=== PATIENT | female | born 1970 | race African-American/Black ===

== ENCOUNTER 2019-02-25 08:21 | Day surgery (SDC) | payer OTHER, BC ==
[2019-02-25] MEDS ORDERED: MIDAZOLAM HCL 2MG/2ML VIAL IV ONE (08:22)
[2019-02-25] MEDS ORDERED: LIDOCAINE 2% MDV (20MG/ML) 20ML VIAL IV ONE (08:22)
[2019-02-25] MEDS ORDERED: KETOROLAC 30 MG/ML VIAL IVP ONE (08:22)
[2019-02-25] MEDS ORDERED: SEVOFLURANE 250 ML INH ONE (08:22)
[2019-02-25] MEDS ORDERED: GLYCOPYRROLATE 0.2 MG/ML ML IV ONE (08:22)
[2019-02-25] MEDS ORDERED: FENTANYL PF 100MCG/2ML VIAL IV ONE (08:22)
[2019-02-25] MEDS ORDERED: PROPOFOL 10 MG/ML VIAL IV ONE (08:22)
[2019-02-25] MEDS ORDERED: ONDANSETRON HCL IV 4 MG/2 ML VIAL IVP ONE (08:22)
[2019-02-25] MEDS ORDERED: DEXAMETHASONE 4 MG/ML 1ML VIAL IVP ONE (08:22)
[2019-02-25] MEDS ORDERED: BUPIVACAINE 0.25% W/EPI MPF 30ML VIAL SQ ONE (11:04)
[2019-02-25] MEDS ORDERED: RINGERS SOLUTION,LACTATED 550 ML IV ONE (11:18)
[2019-02-25] MEDS ORDERED: HYDROCODONE/APAP 5/325MG TABLET PO ONE (11:53)
--- NOTE | 2019-02-26 12:11 | Operative Note ---
DATE OF SERVICE: 02/25/2019. DATE OF SURGERY: 02/25/2019. PREOPERATIVE DIAGNOSIS: Torn medial meniscus of the left knee. POSTOPERATIVE DIAGNOSES: 1. Torn medial meniscus, left knee. 2. Chondromalacia patellae, left knee. OPERATION: 1. Arthroscopic partial medial meniscectomy, left knee. 2. Arthroscopic chondroplasty of the patella, left knee. SURGEON: Terell Moreno DO. REFERRING PHYSICIAN: Rober Jasso MD. PROCEDURE: This 48-year-old female was taken to the operating room and placed in the supine position on the operating room table. General anesthetic was administered, and the left lower extremity was elevated. It was exsanguinated and the tourniquet inflated to 300 mmHg. Arthroscopic knee lopez applied. Left knee placed with Hibiclens and draped in the usual sterile fashion. An inferolateral portal was established with the 4 mm arthroscope, and initial evaluation of the joint demonstrated significant degenerative change of the patella, but the trochlea appeared to be normal. An inferomedial portal was established, and grade 3 chondromalacia of the median ridge, and part of the lateral facet demonstrated grade 3 changes of the patella. Loose fragments of articular cartilage were present, and these were smoothed and shaved with the rotating shaver to stable articular cartilage. It was reprobed and found to be stable. The medial compartment was entered, and the patient demonstrated evidence of a tear of the posterior horn of the medial meniscus. This was a complex tear with a horizontal cleavage component. The tear extended from approximately the 9 o'clock position around to about the 1 o'clock position and did not involve the meniscal root. The basket forceps and rotating shaver were used to resect unstable fragments of the posterior horn of the medial meniscus. Rotating shaver further used to smooth and contour. The articular cartilage appeared normal. The intercondylar notch was examined and found to be normal. The lateral compartment was entered, and the articular cartilage of the lateral compartment and meniscus appeared to be normal. The joint was then copiously irrigated and suctioned. The instruments were removed and the portals infiltrated with 0.25% Marcaine with epinephrine. Sterile dressings applied and the patient taken to the recovery room in satisfactory condition. GROSS PATHOLOGY: This patient demonstrated evidence of a tear of the medial meniscus. This was an old tear with horizontal cleavage components, and it was grossly unstable. In addition, grade 3 chondromalacia of the patella was identified. This lesion was about a cm and a half in greatest dimension. [facility]
== END 2019-02-25 12:17 | disposition home or self-care (01) ==
LOC: SUR 08:21
PROVIDERS: ATTEND Orthopaedic Surgery
DX: S83.232A Complex tear of medial meniscus, current injury, left knee, initial encounter (principal); R00.2 Palpitations; F41.0 Panic disorder [episodic paroxysmal anxiety]
CPT/HCPCS: 29881; 01400; 81025; J1885; J2405; J3010; J7120